=== PATIENT | male | born 1990 | race Caucasian/White ===

== ENCOUNTER 2016-08-06 09:03 | Emergency (ER) | payer OTHER ==
[~2016-08-06] VITALS: Ht 175.3 cm; Wt 75.4 kg
[~2016-08-06 09:03] MED LIST: AMOXICILLIN500 M1 PO; ATARAX,VISTARIL50 MG PO; DAILY VALUE1 EACH PO; FLEXERIL10 MG PO; INDOCIN50 MG PO; NAPROXEN500 MG PO; XANAX0.5 MG PO; ZOLOFT25 MG PO
[2016-08-06 10:17] LABS: EOSINOPHIL (%) 0.6 % (0-5); HEMATOCRIT 49.8 % (38.0-50.0); IMMATURE GRANULOCYTE (%) 0.3 % (0.0-0.7); INSTRUMENT ABS NEUTROPHIL CT 4.9 K/uL; LYMPHOCYTE COUNT 1.7 K/uL (1.0-2.8); MCH 29.3 PG (29.0-34.0); MCHC 33.7 G/DL (30.0-36.0); MCV 86.9 FL (86-99); MEAN PLAT.VOLUME 10.3 uM^3 (9.0-12.4); MONOCYTE (%) 6.5 % (3-12); MONOCYTE COUNT 0.5 K/uL (0-0.8); NEUTROPHIL (%) 68.7 % (45-76); NEUTROPHIL COUNT 4.9 K/uL (1.8-6.4); PLATELET COUNT 222 K/uL (156-360); RBC DIS.WIDTH-CV 11.9 % (11.8-14.6); RED BLOOD COUNT 5.73 M/uL (4.00-5.50); WHITE BLOOD COUNT 7.1 K/uL (4.1-10.2)
[2016-08-06 10:27] LABS: CHLORIDE 106 mEq/L (99-109); POTASSIUM 4.3 mEq/L (3.7-5.4); SODIUM 139 mEq/L (136-147)
[2016-08-06 10:29] LABS: GLUCOSE 100 mg/dL (70-99)
[2016-08-06 10:30] LABS: ANION GAP 10 MEQ/L (2-14)
[2016-08-06 10:32] LABS: SERUM ETHYL ALCOHOL < 10 mg/dL
[2016-08-06 10:33] LABS: GFR ESTIMATE (CALCULATED) > 59 mL/min/
[2016-08-06 10:34] LABS: UREA NITROGEN (BUN) 14 mg/dL (9-23)
[2016-08-06] MEDS ORDERED: XANAX0.25 MG PO (12:41)
[2016-08-06 14:14] VITALS: BP 128/74
== END 2016-08-06 12:14 | disposition home or self-care (01) ==
LOC: EME 09:03
PROVIDERS: Emergency Medicine
DX: F41.9 Anxiety disorder, unspecified (principal); F32.9 Major depressive disorder, single episode, unspecified
CPT/HCPCS: 80048; 81003; 85025; 90839; 99281; 99284; G0480